=== PATIENT | male | born 2000 | race African-American/Black ===

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

== ENCOUNTER 2021-08-01 21:15 | Observation (INO) | payer OTHER ==
[~2021-08-01] VITALS: Ht 175.3 cm; Wt 65.8 kg
[~2021-08-01 21:15] MED LIST changes: +CYCLOBENZAPRINE5 MG PO
[2021-08-01 21:31] VITALS: BP 164/78
[2021-08-01 22:08] LABS: HEMATOCRIT 47.9 % (42.0-52.0); HEMOGLOBIN 16.3 gm/dL (14.0-18.0); MCH 27.7 pg (26.0-34.0); MCHC 34.1 g/dL (28.0-37.0); MCV 81.2 fL (80.0-100.0); MPV 8.3 fl. (7.2-11.1); NUCLEATED RBCS 0 /100WBC; PLATELET COUNT* 286 thou/uL (150-400); RDW-CV 12.6 % (10.5-14.5); WBC 6.6 thou/uL (4.0-11.0)
[2021-08-01 22:14] LABS: CREATININE 0.6 mg/dL (0.6-1.3); POTASSIUM 4.5 mmol/L (3.5-5.1)
[2021-08-01 22:16] LABS: URINE BILIRUBIN NEGATIVE (Negative); URINE BLOOD TRACE (Negative); URINE CLARITY CLEAR; URINE COLOR YELLOW; URINE GLUCOSE-RANDOM NEGATIVE (Negative); URINE KETONES 3+ (Negative); URINE LEUKOCYTES-REFLEX NEGATIVE (Negative); URINE NITRITE-REFLEX NEGATIVE (Negative); URINE PROTEIN NEGATIVE (Negative); URINE SPECIFIC GRAVITY >= 1.030 (1.005-1.030); URINE UROBILINOGEN 0.2 E.U./dl (0.2-1.0)
[2021-08-01 22:18] LABS: ALBUMIN 4.2 g/dL (3.4-5.0); TOTAL BILIRUBIN 0.8 mg/dL (<0.1-1.0); TOTAL PROTEIN 8.4 g/dL (6.4-8.2)
[2021-08-01 22:18] LABS: ACETEST (KETONE CONFIRMATORY) Large (Negative)
[2021-08-01 22:25] LABS: AMP/METHAMP Negative (Negative); BARBITURATES Negative (Negative); BENZODIAZEPINES Negative (Negative); COCAINE Negative (Negative); METHADONE Negative (Negative); OPIATES Negative (Negative); PCP Negative (Negative); THC POSITIVE (Negative)
[2021-08-01 22:48] LABS: BE -6.6 mmol/L (-2 to +3); PCO2 VENOUS 35.8 mmHg (41.0-51.0); PO2 VENOUS 63.1 mmHg (35.0-45.0)
[2021-08-01 22:58] LABS: MAGNESIUM 1.8 mg/dL (1.8-2.4); PHOSPHORUS* 4.9 mg/dL (2.5-4.9)
[2021-08-01 23:37] LABS: ABSOLUTE LYMPHOCYTES 1.2 thou/uL (0.8-5.3); ABSOLUTE NEUTROPHILS 5.4 thou/uL (1.6-8.1)
[2021-08-01 23:38] LABS: LARGE PLATELETS RARE; PLATELET ESTIMATE ADEQUATE
[2021-08-02 01:39] LABS: CALCIUM 10.3 mg/dL (8.5-10.1)
[2021-08-02 05:10] VITALS: BP 130/63
--- NOTE | 2021-08-02 05:20 | NUR ---
HOSPITALIST PAGED FOR PATIENT HAVING INTERMITTENT TACHYCARDIA WITH A RATE IN THE 150'S.
[2021-08-02 08:00] VITALS: BP 132/52
--- NOTE | 2021-08-02 08:39 | EKG ---
[place] [address] ELECTROCARDIOGRAM REPORT Name: EVIN BRANDT [id number] Admission: 08/02/21 Attend Phys: Shayne Deutsch Discharge: Date of : 2 Date of Service: 08/01/212229 Report #: [id number] THIS REPORT FOR: //name// [facility] ED Test Date: 2021-08-01 Test Time: 22:30:16 Pat Name: EVIN BRANDT Department: Room: [place] [address] Gender: M Estate Planner: ERNESTINE : 2000 Requested By: Laly Ford Order Number: [id number] MD: Igor Tang Measurements Intervals [place] Rate: 108 P: 61 [place]: 194 QRS: 68 QRSD: 77 T: 57 QT: 328 QTc: 440 Interpretive Statements Sinus tachycardia No previous ECG available for comparison Electronically Signed On 08-02-2021 8:39:30 CDT by Igor Tang [email or web address] <ELECTRONICALLY SIGNED> By: Igor Tang MD, [facility] 08/02/21 0839 29 29 Igor Tang MD, [facility] /EPI
[2021-08-02 09:46] LABS: CALCIUM 9.8 mg/dL (8.5-10.1); CREATININE 0.7 mg/dL (0.6-1.3); POTASSIUM 4.1 mmol/L (3.5-5.1)
[2021-08-02 10:25] VITALS: BP 132/52
--- NOTE | 2021-08-02 10:26 | EKG ---
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
--- NOTE | 2021-08-02 11:29 | NUR ---
PT DISCHARGED FROM INPATIENT BY [facility]
== END 2021-08-02 11:29 | disposition home or self-care (01) ==
LOC: M.ERS 21:15 → M.TBA-ER 08-02 00:57
PROVIDERS: Family Medicine; Personal Emergency Response Attendant; ADMIT Internal Medicine; ATTEND Internal Medicine
DX: R11.2 Nausea with vomiting, unspecified (principal); Z20.822 Contact with and (suspected) exposure to COVID-19; E87.1 Hypo-osmolality and hyponatremia; F19.10 Other psychoactive substance abuse, uncomplicated; J45.909 Unspecified asthma, uncomplicated; F17.210 Nicotine dependence, cigarettes, uncomplicated; Z79.899 Other long term (current) drug therapy

== ENCOUNTER 2021-10-07 16:11 | Emergency (ER) | payer OTHER ==
[~2021-10-07] VITALS: Ht 180.3 cm; Wt 63.5 kg
[2021-10-07 16:30] VITALS: BP 132/91
== END 2021-10-07 17:41 | disposition left against medical advice (07) ==
LOC: M.ERS 16:11
DX: R50.9 Fever, unspecified (principal); Z53.21 Procedure and treatment not carried out due to patient leaving prior to being seen by health care provider